=== PATIENT | female | born 1980 | race Caucasian/White ===

== ENCOUNTER → 2016-10-28 | Outpatient (CLI) | payer SELFPAY ==
--- NOTE | 2016-10-28 17:04 | Diagnostic Imaging Report ---
PROCEDURE: US Thyroid. TECHNIQUE: Multiple real-time grayscale images were obtained of the thyroid in various projections. INDICATION: Throat fullness. There are no prior studies available for comparison. FINDINGS: The right lobe of thyroid is enlarged at 5.8 x 1.9 x 2.2 cm. The left lobe of thyroid is not enlarged and left lobe is estimated to be 5.4 x 1.3 cm (normal gland size 4-5 x 2 x 2 cm or less). Within the inferior pole of the right lobe, there is a 1.1 x 1.1 x 1.1 cm hypoechoic solid-appearing nodule. Just inferior to this is a smaller 0.6 x 0.6 x 0.5 cm solid nodule. The left lobe of thyroid is fairly homogeneous. IMPRESSION: 1. The right lobe of thyroid is enlarged and there are two nodules in the inferior pole. These nodules are nonspecific but most likely benign. If further imaging is desired, then nuclear medicine thyroid scan would be recommended. If the nuclear medicine thyroid scan is not obtained, then a short-term (six-month) followup thyroid ultrasound exam should be performed. 2. The left lobe of thyroid is unremarkable. Dictated by: Dictated on workstation # [id number]
== END ==
LOC: RAD 12:53
PROVIDERS: ATTEND Nurse Practitioner Family
DX: E01.0 Iodine-deficiency related diffuse (endemic) goiter (principal); E04.2 Nontoxic multinodular goiter
CPT/HCPCS: 76536

== ENCOUNTER → 2019-07-31 | Outpatient (CLI) | payer OTHER ==
--- NOTE | 2019-07-31 14:35 | Diagnostic Imaging Report ---
INDICATION: Generalized breast tenderness. Patient denies having a discrete palpable lump. COMPARISON: No prior studies are available for comparison. TECHNIQUE: 2D and 3D bilateral diagnostic mammography was performed with CAD. FINDINGS: Scattered fibroglandular densities are identified bilaterally. No dominant mass is seen. No malignant appearing microcalcifications are identified. The axillae are unremarkable. IMPRESSION: No mammographic features suspicious for malignancy are identified. Clinical followup is recommended. If the patient does develop a discrete palpable lump, the patient could return and directed sonographic interrogation of that area could be performed. ACR BI-RADS Category 1: Negative. Result letter will be mailed to the patient. Note: At least 10% of breast cancer is not imaged by mammography. Dictated by: Dictated on workstation # [id number]
== END ==
LOC: RAD 14:07
PROVIDERS: ATTEND Nurse Practitioner Family
DX: N64.89 Other specified disorders of breast (principal)
CPT/HCPCS: 77066